=== PATIENT | female | born 1975 | race Caucasian/White ===

== ENCOUNTER → 2024-02-11 13:05 | Outpatient (REF) | payer OTHER, SELFPAY | LOC: HWWDC 13:05 | PROVIDERS: ATTENDING PHYSICIAN Nurse Practitioner Adult Health | DX: Z12.31 Encounter for screening mammogram for malignant neoplasm of breast (principal); M25.561 Pain in right knee; M25.562 Pain in left knee; G89.29 Other chronic pain | CPT/HCPCS: 73564; 77063; 77067 ==

== ENCOUNTER 2024-04-23 11:37 | Emergency (ER) | payer OTHER, SELFPAY ==
[2024-04-23 11:47] VITALS: BP 160/113
[2024-04-23 12:39] LABS: HCG, Serum Qualitative Screen Negative
[2024-04-23 12:42] LABS: ALT (SGPT) 19 U/L (0-35); AST (SGOT) 24 U/L (14-36); Albumin 4.9 g/dl (3.5-5.0); Alkaline Phosphatase 85 U/L (38-126); Blood Urea Nitrogen 19 mg/dl (7-17); Calcium 10.3 mg/dl (8.4-10.2); Carbon Dioxide 27 mmol/L (22-30); Chloride 104 mmol/L (98-107); Glucose 99 mg/dl (70-99); Lipase 75 U/L (23-300); Sodium 141 mmol/L (135-145); Total Bilirubin 1.1 mg/dl (0.2-1.3); Total Protein 7.9 g/dl (6.3-8.2); eGFR > 60.00
--- NOTE | 2024-04-23 13:09 | ED.GENMED ---
History of Present Illness
<Kem Lopez, DO - Last Filed: 04/23/24 14:35>
General
Chief Complaint: Abdominal Pain
Source: patient
Exam Limitations: none
Time Seen by Provider: 04/23/24 12:47
Nursing documentation reviewed up to this point in time: agreed with
History of Present Illness
History of Present Illness:
49-year-old female PCP referral for upper abdominal pain into her back fairly constant for a few days nausea without vomiting no dysuria or frequency she has had bladder surgery before low back surgery before tonsillectomy before still has her
gallbladder and appendix no fevers no alcohol or tobacco
Past History
<Kem Lopez, DO - Last Filed: 04/23/24 14:35>
Past History
ED Past Medical History: HTN, Hypercholesterolemia and Hypothyroidism
ED Past Surgical History: , Orthopedic and Urological (bladder sling)
Social History
Tobacco: Former smoker
Alcohol: None
Drug: None
Personal:
Living: with family
Employment: Employed
Family History
Family History: Other (Noncontributory)
Review of Systems
<Kem Lopez, DO - Last Filed: 04/23/24 14:35>
Review of Systems
All Other Systems: Not applicable
Constitutional: Denies fever or fatigue
EENT: Reports no symptoms
Respiratory: Reports no symptoms
Cardiac: Reports no symptoms
ABD/GI: Reports abdominal pain and nausea; Denies vomiting or diarrhea
: Reports no symptoms
Musculoskeletal: Reports back pain
Skin: Reports no symptoms
Endocrine: Reports no symptoms
Hematologic/Lymphatic: Reports no symptoms
Phy Exam
<Kem Lopez, DO - Last Filed: 04/23/24 14:35>
Physical Exam
Physical Exam:
Physical Exam
General: no apparent distress, not acutely ill
Neck: No jaundice
Heart: s1/s2 regular rate and rhythm, no murmur. equal radial pulses.
Lungs: no acute respiratory distress. clear bilaterally
Abdomen: Tender in the epigastrium right upper quadrant
Neuro: alert and oriented. no focal neurological deficits
Skin: no rash
Psychiatric: well kept. interactive and cooperative
Extremities: no edema
Course
<Kem Lopez, DO - Last Filed: 04/23/24 14:35>
Orders/Labs/Results
Orders:
Orders
04/23/24 11:52
Electrocardiogram (*1) Urgent
Reason for Study: Other
Other Reason for Exam: R shoulder blade pain
04/23/24 11:53
EKG- Treatment ONCE
Test Result ONCE
04/23/24 12:03
Comprehensive Metabolic Panel Urgent
HCG, Serum Qualitative Screen Urgent
Lipase Urgent
04/23/24 12:48
US Abdomen Complete/Upper Urgent
Comment:
Reason For Exam: Pain
04/23/24 13:02
Ketorolac [Toradol] 30 mg IV NOW STA
04/23/24 13:43
Complete Blood Count/With Diff Urgent
Troponin I Urgent
04/23/24 14:34
CT Abd/pelvis W Iv Cont Urgent
Comment:
Reason For Exam: abd opain
Abnormal Lab Results
04/23/24
12:03
BUN 19 H mg/dl
(7-17)
Calcium 10.3 H mg/dl
(8.4-10.2)
04/23/24 13:43
04/23/24 12:03
Vital Signs
Initial and Last Documented VS:
Initial Vital Signs
Temp Pulse Resp BP Pulse Ox
97.8 F 99 16 160/113 99
04/23/24 11:47 04/23/24 11:47 04/23/24 11:47 04/23/24 11:47 04/23/24 11:47
Last Documented Vital Signs
Temp Pulse Resp BP Pulse Ox
98.5 F 70 16 121/76 97
04/23/24 15:13 04/23/24 15:13 04/23/24 15:13 04/23/24 15:13 04/23/24 15:13
<Darleen Briggs NP - Last Filed: 04/23/24 16:12>
Orders/Labs/Results
Orders:
Orders
04/23/24 11:52
Electrocardiogram (*1) Urgent
Reason for Study: Other
Other Reason for Exam: R shoulder blade pain
04/23/24 11:53
EKG- Treatment ONCE
Test Result ONCE
04/23/24 12:03
Comprehensive Metabolic Panel Urgent
HCG, Serum Qualitative Screen Urgent
Lipase Urgent
04/23/24 12:48
US Abdomen Complete/Upper Urgent
Comment:
Reason For Exam: Pain
04/23/24 13:02
Ketorolac [Toradol] 30 mg IV NOW STA
04/23/24 13:43
Complete Blood Count/With Diff Urgent
Troponin I Urgent
04/23/24 14:34
CT Abd/pelvis W Iv Cont Urgent
Comment:
Reason For Exam: abd opain
Abnormal Lab Results
04/23/24
12:03
BUN 19 H mg/dl
(7-17)
Calcium 10.3 H mg/dl
(8.4-10.2)
04/23/24 13:43
04/23/24 12:03
Vital Signs
Initial and Last Documented VS:
Initial Vital Signs
Temp Pulse Resp BP Pulse Ox
97.8 F 99 16 160/113 99
04/23/24 11:47 04/23/24 11:47 04/23/24 11:47 04/23/24 11:47 04/23/24 11:47
Last Documented Vital Signs
Temp Pulse Resp BP Pulse Ox
98.5 F 70 16 121/76 97
04/23/24 15:13 04/23/24 15:13 04/23/24 15:13 04/23/24 15:13 04/23/24 15:13
<Darleen Briggs NP - Last Filed: 04/23/24 16:12>
*Critical Care Note
Total Time (30-74mins, 75-104mins- exclusive of procedures): Not Applicable
<Kem Lopez DO - Last Filed: 04/23/24 14:35>
Update Note
Update Note:
Update ultrasound noted labs are noted we will proceed with CT scanning
<Darleen Briggs NP - Last Filed: 04/23/24 16:12>
Update Note
Update Note:
Update ultrasound noted labs are noted we will proceed with CT scanning
CT results reviewed with patient. No concerning findings. She will be discharged home, follow up with PCP. Given instructions on s/s to return to ED and she is agreeable to plan.
ED Attending Note
<Kem Lopez DO - Last Filed: 04/23/24 14:35>
-
Portions of this chart may have been created with voice recognition software.� Occasional wrong word or��sound alike� substitutions may have occurred due to the inherent limitations of voice recognition software.
Discharge Plan
Departure
Patient Disposition: Home (Routine Discharge)
Date of Disposition: 04/23/24
Time of Disposition: 15:58
Patient with high blood pressure during this ER visit?: No
Condition: Good
Covid-19: Not Applicable
Discharge Problem:
Abdominal pain
Instructions: Abdominal Pain
Prescriptions:
New
pantoprazole [Protonix] 40 mg tablet,delayed release (DR/EC)
40 mg PO DAILY Qty: 30 0RF
No Action
levothyroxine 175 MCG tablet
175 mcg PO DAILY
desvenlafaxine succinate [Pristiq] 50 MG tablet extended release 24 hr
50 mg PO DAILY
lisinopril
1 tab PO DAILY
Patient Comments:
pt does not know name
rosuvastatin
1 tab PO DAILY
Patient Comments:
pt does not know dose
Referrals:
Felipa Aj CRNP [Family Provider] -
Interventions
Interventions:
*Risk Screen - Suicide Last Done: 04/23/24 13:15
*General Assessment Last Done: 04/23/24 13:15
*Neglect/Abuse Screening Last Done: 04/23/24 13:15
ED- Fall Risk Assessment Last Done: 04/23/24 13:15
*ED COVID-19 Vaccine History Last Done: 04/23/24 13:15
UL-Ggnrzm-Oksiuejanm Assessment Last Done: 04/23/24 15:23
Discharge Date and Time
Print Language: SAUDI ARABIAN
[2024-04-23 13:15] VITALS: BMI 28.0
--- NOTE | 2024-04-23 13:15 | EDRN ---
Pt states her pain started very mild on Friday and Friday was worse and continued today. pt states no N/V but has GERD like feeling in her abd. Last BM after being awoken at 1:00 am w/ severe cramping was looser that her usual.
--- NOTE | 2024-04-23 13:23 | EDRN ---
Unable to get IV access at this time w/ IV VAT RN paged.
[2024-04-23] MEDS: TORADOL 30 MG IV (13:44)
[2024-04-23 13:50] VITALS: BP 141/99
[2024-04-23 13:55] LABS: % Basophils 0.5 % (0-2); % Eosinophils 2.2 % (0-6); % Immature Granulocytes 0.4 % (0-0.5); % Lymphocytes 36.2 % (20.5-51.1); % Monocytes 6.1 % (1.7-9.3); % Neutrophils 54.6 % (42.2-75.2); Absolute Basophils 0.1 10^3/uL (0-0.2); Absolute Eosinophils 0.2 10^3/uL (0-0.7); Absolute Lymphocytes 3.3 10^3/uL (1.2-3.4); Absolute Monocytes 0.6 10^3/uL (0.1-0.6); Hematocrit 41.9 % (37.0-47.0); Hemoglobin 14.4 g/dL (12.0-16.0); Mean Corp Hgb Conc. 34.4 g/dL (33.0-37.0); Mean Corpuscular Hgb 29.8 pg (27.0-31.0); Mean Corpuscular Volume 86.6 fL (81.0-99.0); Mean Platelet Volume 9.3 fL (7.4-10.4); Nucleated Red Blood Cells % 0 %; Platelet Count 222 10^3/uL (130-400); Red Blood Cell Count 4.84 10^6/uL (4.20-5.40); Red Cell Dist. Width 13.2 % (11.5-14.5); White Blood Cell Count 9.2 10^3/uL (4.8-10.8)
[2024-04-23 14:40] LABS: Troponin I < 0.012 ng/ml
[2024-04-23 15:13] VITALS: BP 121/76
--- NOTE | 2024-04-23 15:16 | EDRN ---
Pt having constant RUQ pain since Friday. Pt saw her doctor this morning and was sent to ED for evaluation, concerned it could be problem with gallbladder or appendix. Pt had similar pain 1-2 years ago but it was intermittent and went away on
its own. Nausea, no vomiting. Decreased appetite. No cp, sob, diarrhea/constipation, urinary symptoms, weakness, dizziness, fever/chills/cough. Pt took advil yesterday for pain that did not help. Pt adds she has had R shoulder blade pain for
few weeks.
== END 2024-04-23 16:26 | disposition home or self-care (01) ==
LOC: EMR 11:37
PROVIDERS: Emergency Medicine; EMERGENCY PHYSICIAN Emergency Medicine; FAMILY PHYSICIAN Nurse Practitioner Adult Health
DX: R10.10 Upper abdominal pain, unspecified (principal); I10 Essential (primary) hypertension; E78.00 Pure hypercholesterolemia, unspecified; E03.9 Hypothyroidism, unspecified; Z87.891 Personal history of nicotine dependence
CPT/HCPCS: 99284; 96374; 74177; 76700; 80053; 83690; 84484; 84703; 85025; 93005; Q9967